=== PATIENT | female | born 1960 | race Caucasian/White ===

== ENCOUNTER 2016-07-14 08:51 | Outpatient (CLI) ==
[2016-07-14 09:29] LABS: HEMATOCRIT 37.1 % (37.0-47.0); HEMOGLOBIN 12.1 g/dl (12.0-16.0); MEAN CORPUSCULAR HEMOGLOBIN 28.2 pg (27.0-31.0); MEAN CORPUSCULAR HGB CONC 32.6 (31.8-35.4); MEAN CORPUSCULAR VOLUME 86.5 fl (81.0-99.0); RED BLOOD COUNT 4.29 10^6/ul (4.20-5.40); WHITE BLOOD COUNT 9.68 K/ul (4.6-10.2)
[2016-07-14 10:11] LABS: ALBUMIN 3.5 g/dL (3.4-5.0); ALBUMIN/GLOBULIN RATIO 0.92; BILIRUBIN,TOTAL 0.23 mg/dL (0.00-1.20); CALCIUM 9.1 mg/dL (8.2-10.2); CHOL/HDL RATIO 3.7 (4.5-5.5); CREATININE 0.75 mg/dL (0.60-1.30); FERRITIN 275.28 ng/mL (4.63-204.00); TOTAL PROTEIN 7.3 g/dL (6.4-8.2)
[2016-07-15 08:15] LABS: URINE CREATININE 131.3 mg/dL (Not Estab.)
[2016-07-19 11:40] LABS: URINE MALB/CR RATIO 6.2 mg/g creat (0.0-30.0)
== END 2016-07-14 08:52 | disposition home or self-care (01) ==
LOC: LAB 08:51
PROVIDERS: ATTEND Internal Medicine
DX: E11.9 Type 2 diabetes mellitus without complications (principal); I10 Essential (primary) hypertension; R79.89 Other specified abnormal findings of blood chemistry
CPT/HCPCS: 36415; 80053; 80061; 82043; 82728; 83036; 83540; 83550; 84443; 85027